=== PATIENT | male | born 1960 | race Caucasian/White ===

== ENCOUNTER → 2018-03-31 12:37 | Outpatient (REF) | payer MEDICARE, MEDICAID, SELFPAY ==
[2018-03-31 19:14] LABS: HCT 44.4 % (40.0-50.0); HGB 14.6 g/dL (13.5-17.5); Mean Corp. HGB Concentration 32.9 g/dL (32.0-36.0); Mean Corpuscular Hemoglobin 29.4 pg (27.0-33.0); Mean Corpuscular Volume 89.3 fL (80-95); Mean Platelet Volume 11.2 fL (8.0-11.0); Platelet Count 238 x1000/uL (130-400); RBC 4.97 m/cumm (4.50-6.00); RBC Distribution Width 13.5 % (11.8-14.1); White Blood Cell Count 7.92 k/cumm (4.4-10.8)
[2018-03-31 19:26] LABS: ALT 26 U/L (12-78); AST 21 U/L (15-37); Albumin 4.1 g/dL (3.4-5.0); Alkaline Phosphatase 73 U/L (46-116); Anion Gap 8.5 mmol/L (3-11); BUN 14 mg/dL (7-18); Bilirubin, Total 0.3 mg/dL (0.2-1.0); CO2 28.5 mmol/L (21.0-32.0); CREATININE 0.85 mg/dL (0.70-1.30); Calcium 8.8 mg/dL (8.5-10.1); Chloride 104 mmol/L (98-107); Cholesterol 165 mg/dL (50-200); Glucose 91 mg/dL (70-100); HDL Cholesterol 39 mg/dL (40-60); LDL CHOLESTEROL 111 mg/dL (<100); Potassium 4.6 mmol/L (3.5-5.1); Sodium 141 mmol/L (136-145); Total Protein 7.7 g/dL (6.4-8.2); Triglyceride 72 mg/dL (30-150)
[2018-03-31 19:33] LABS: Hemoglobin A1C 6.1 % (4.5-6.2)
[2018-04-03 10:09] LABS: PSA, Screening 0.4 ng/ml (0-3.5)
== END ==
LOC: NCHCN 12:37
PROVIDERS: PCP Nurse Practitioner Family; Visit Provider Family Medicine
DX: L40.9 Psoriasis, unspecified (principal); R73.01 Impaired fasting glucose; Z12.5 Encounter for screening for malignant neoplasm of prostate
CPT/HCPCS: 80053; 80061; 83721; 84153; 85027; 83036

== ENCOUNTER → 2018-04-20 01:42 | Outpatient (CLI) | payer MEDICARE, MEDICAID, SELFPAY ==
--- NOTE | 2018-04-20 14:13 | DI.REPORT_ITS ---
SYMPTOMS/DIAGNOSIS: RIGHT SCROTAL PAIN, N50.82 SCROTAL ULTRASOUND: The right testicle measures 2.4 x 2 x 1.2 cm and is heterogeneous, and irregular shaped and slightly atrophic. There is slightly diminished color flow and the testicle is slightly hypoechoic. The left epididymal head measures 9 x 8 mm. A 6 mm cyst is noted in the mid body of the right epididymis. Also, a 9 x 5 x 4 mm epididymal head cyst is identified. The left testicle measures 4.2 x 2.7 x 2.3 cm, is homogeneous and has normal color flow and is normal in appearance. The left epididymal head measures 6 x 7 x 9 mm and there is a 3 mm left epididymal head cyst. Prominent veins that enhance slightly with color flow on a Valsalva maneuver are noted in the right scrotum, the findings raising the possibility of a mild varicocele. SUMMARY: As noted above, there is an irregular heterogenous, hypoechoic right testis, which is mildly atrophic. Also, somewhat diminished color flow is seen compared with its left counterpart. There is no evidence of a right or left testicular mass or torsion.
== END ==
PROVIDERS: PCP Nurse Practitioner Family; Visit Provider Family Medicine
DX: N50.82 Scrotal pain (principal); N50.0 Atrophy of testis; N50.3 Cyst of epididymis
CPT/HCPCS: 76870

== ENCOUNTER 2018-05-11 06:39 | Emergency (ER) | payer MEDICARE, MEDICAID, SELFPAY ==
[2018-05-11] VITALS (38 sets, daily range): BP systolic 113–156; BP diastolic 60–96; PULSE 46–60; RESP 10–23; TEMP 36.7; O2SAT 91–99
--- NOTE | 2018-05-11 06:51 | W.ED.GENAD ---
Discharge Plan Disposition Patient Disposition: HOME Condition: Stable Discharge Details Chief Complaint: Chest Pain Clinical Impression: Chest pain Primary Care Provider: Kaylan Vo ED Provider: Andres Salguero Home Meds and New Rx's Prescriptions: Continue loratadine [Claritin RediTabs] 10 MG tablet,disintegrating 10 mg PO DAILY PRNRF: 0 ibuprofen 800 MG tablet 800 mg PO TID PRN RF: 0 blood sugar diagnostic [FreeStyle Lite Strips] 1 EACH strip 1 ea Miscellaneous QD AND PM RF: 0 lancets 1 EACH misc 1 ea Miscellaneous DAILY RF: 0 FLONASE 16 GM SPRAY.SUSP 50 mcg NS BID RF: 0 NIZORAL 30 GM CREAM..G. 30 gm Topical BID RF: 0 blood sugar diagnostic [FreeStyle Lite Strips] 1 EACH strip 1 ea Miscellaneous UD RF: 0 betamethasone, augmented 50 GM ointment 50 gm Topical BID RF: 0 lancets 1 EACH misc 1 ea Miscellaneous UD Qty: 400 RF: 0 methadone 10 MG tablet 170 mg PO DAILY RF: 0 adalimumab [Humira Pen] 40 mg/0.4 mL Pen Injector Kit 1 subcut DIRECTED RF: 0 duloxetine 30 mg Capsule,Delayed Release(Dr/Ec) 60 mg PO DAILY RF: 0 Discharge Instructions Instructions: Chest Pain (ED) Discharge Data Discharge Physician: Andres Salguero Medical Decision Making <Jadon Newsome MD - Last Filed: 05/11/18 07:54> [facility] Narrative Medical decision making narrative: Patient here with left sided chest pain that is pleuritic. Maybe a little worse with movement but mostly with breathing. He is not short of breath. He is bradycardic not tachycardic. Doubt this is pulmonary embolus but we will check a d-dimer given the pleuritic nature of the pain. Does not seem to be cardiac in nature but he does smoke and he is middle-aged. This EKG is sinus bradycardia with a right bundle branch block and is unchanged from previous. If his initial troponin is negative he will have a HEART score of 3. Will give aspirin. Will try a nitroglycerin. If this does not help we will give Toradol. Will sign the patient over to oncoming physician, Dr. Salguero to follow-up on x-ray and labs and disposition. Medical Records Medical records reviewed: Yes I reviewed the patient's medical records. ECG Data Attestation: I personally reviewed and interpreted this ECG (s) as follows: Prior ECG tracings: available for review Interpretation: Sinus bradycardia at a rate of 51. Normal axis. Right bundle branch block present and old. No ST changes. HPI - General Adult <Jadon Newsome MD - Last Filed: 05/11/18 07:54> General Mode of arrival: ambulatory. Date/Time Provider Initiated Documentation: 05/11/18 06:51. Limitations to Documentation: no limitations. Information obtained by: patient. HPI Narrative: Patient presents to the ED with left sided chest pain that started around 4 am. Pain is decribed as tightness but it is pleuritic as well. No associated symptoms. No leg pain or leg swelling. He is a smoker. Smoked marijuana and cigarettes prior to coming in this morning. He also took his morning medications which include methadone. He reports starting the new medication a couple of weeks ago but cannot remember the name of it. He mentions this because a few years ago he was put on a new medication that interacted with his methadone and caused him to have chest pain then. He also reports removing a planter full of dirt from his roof the other day using his left arm to carry the plant down from the roof. Related Data Home Medications Medication Instructions Recorded Confirmed Flonase 50 mcg NS BID spray 01/31/13 05/11/18 Nizoral 30 gm TOPICAL BID script 01/31/13 05/11/18 blood sugar diagnostic [FreeStyle strip 01/31/13 05/11/18 Lite Strips] ibuprofen 800 mg PO TID PRN tab-cap 01/31/13 05/11/18 lancets ea 01/31/13 05/11/18 loratadine [Claritin RediTabs] 10 mg PO DAILY PRN tab-cap 01/31/13 05/11/18 betamethasone, augmented 50 gm TOPICAL BID script 11/12/14 05/11/18 blood sugar diagnostic [FreeStyle strip 11/12/14 05/11/18 Lite Strips] lancets #400 ea 11/12/14 05/11/18 methadone 170 mg PO DAILY 12/23/14 05/11/18 adalimumab [Humira Pen] 1 SUBCUT DIRECTED 05/11/18 duloxetine 60 mg PO DAILY 05/11/18 05/11/18 Allergies Allergy/AdvReac Type Severity Reaction Status Date / Time No Known Allergies Allergy Unverified 05/11/18 06:49 General Stated Complaint: Chest Pain AJAY: 2 Review of Systems <Jadon Newsome MD - Last Filed: 05/11/18 07:54> Constitutional Denies chills, Denies fever(s), Denies headache(s), Denies malaise and Denies weakness Eyes Patient denies and Denies eye pain ENT Denies otalgia, Denies headache(s), Denies nasal congestion and Denies sore throat Cardiovascular Reports chest pain, Denies diaphoresis, Denies syncope, Denies edema, Denies leg edema, Denies palpitations, Denies dyspnea and Denies dyspnea on exertion Respiratory Denies cough, Denies dyspnea and Denies dyspnea on exertion Gastrointestinal Denies abdominal pain, Denies diarrhea, Denies nausea and Denies vomiting Musculoskeletal Reports back pain (chronic and unchanged), Denies myalgias, Denies arthralgias, Denies numbness and Denies tingling Integumentary/Breasts Denies erythema and Reports rash (chronic psoriasis) Neurologic Denies syncope, Denies headache(s), Denies focal weakness, Denies numbness, Denies tingling and Denies weakness Endocrine Denies palpitations Exam <Jadon Newsome MD - Last Filed: 05/11/18 07:54> Const General: cooperative, comfortable and no acute distress Orientation: alert and oriented x3 [facility] Head: normocephalic and atraumatic Chest Chest: normal palpation of entire chest wall and no tenderness Resp Effort & Inspection: normal respiratory effort Auscultation: clear to auscultation bilaterally Cardio Rate: regular rate Rhythm: regular rhythm Heart Sounds: S1 normal and S2 normal Pulses: normal peripheral pulses GI Inspection: non-distended Palpation: soft, not firm and nontender Skin Rashes: rashes noted (Psoriatic rash) Neuro General: alert, oriented x3, no focal motor deficits and CN's II-XI intact bilaterally Extrem General: full ROM, no pedal edema and no calf tenderness Course <Jadon Newsome MD - Last Filed: 05/11/18 07:54> Vital Signs Temperature 98.1 F 05/11/18 06:41 Pulse 53 L 05/11/18 06:41 Respiratory Rate 16 05/11/18 06:41 Blood Pressure 156/79 H 05/11/18 06:41 Pulse Oximetry 97 05/11/18 06:41 Temperature 98.1 F 05/11/18 06:41 Pulse 53 L 05/11/18 06:41 Respiratory Rate 16 05/11/18 06:41 Blood Pressure 156/79 H 05/11/18 06:41 Pulse Oximetry 97 05/11/18 06:41 Sign Out <Jadon Newsome MD - Last Filed: 05/11/18 07:54> Sign Out Data: Sign Out Comment: Patient did not respond to nitroglycerin. Labs and chest x-ray pending. Toradol given for pain. Sign out to Dr. Salguero to follow up on labs and imaging and disposition patient. Last updated by Jadon Newsome MD at 05/11/18 07:48 Post-Handoff Eval: patient's pain resolved with toradol and denies pain now. Awaiting second troponin pt still denies pain, second troponin negative. Given heart score of 3 feel he can be managed as outpt, he is going to f/u wi
--- NOTE | 2018-05-11 06:56 | ED.GENADUL_ITS ---
Discharge Plan Disposition Patient Disposition: HOME Condition: Stable Discharge Details Chief Complaint: Chest Pain Clinical Impression: Chest pain Primary Care Provider: Kaylan Vo ED Provider: Andres Salguero Home Meds and New Rx's Prescriptions: Continue loratadine [Claritin RediTabs] 10 MG tablet,disintegrating 10 mg PO DAILY PRNRF: 0 ibuprofen 800 MG tablet 800 mg PO TID PRN RF: 0 blood sugar diagnostic [FreeStyle Lite Strips] 1 EACH strip 1 ea Miscellaneous QD AND PM RF: 0 lancets 1 EACH misc 1 ea Miscellaneous DAILY RF: 0 FLONASE 16 GM SPRAY.SUSP 50 mcg NS BID RF: 0 NIZORAL 30 GM CREAM..G. 30 gm Topical BID RF: 0 blood sugar diagnostic [FreeStyle Lite Strips] 1 EACH strip 1 ea Miscellaneous UD RF: 0 betamethasone, augmented 50 GM ointment 50 gm Topical BID RF: 0 lancets 1 EACH misc 1 ea Miscellaneous UD Qty: 400 RF: 0 methadone 10 MG tablet 170 mg PO DAILY RF: 0 adalimumab [Humira Pen] 40 mg/0.4 mL Pen Injector Kit 1 subcut DIRECTED RF: 0 duloxetine 30 mg Capsule,Delayed Release(Dr/Ec) 60 mg PO DAILY RF: 0 Discharge Instructions Instructions: Chest Pain (ED) Discharge Data Discharge Physician: Andres Salguero Medical Decision Making <Jadon Newsome MD - Last Filed: 05/11/18 07:54> [facility] Narrative Medical decision making narrative: Patient here with left sided chest pain that is pleuritic. Maybe a little worse with movement but mostly with breathing. He is not short of breath. He is bradycardic not tachycardic. Doubt this is pulmonary embolus but we will check a d-dimer given the pleuritic nature of the pain. Does not seem to be cardiac in nature but he does smoke and he is middle- aged. This EKG is sinus bradycardia with a right bundle branch block and is unchanged from previous. If his initial troponin is negative he will have a HEART score of 3. Will give aspirin. Will try a nitroglycerin. If this does not help we will give Toradol. Will sign the patient over to oncoming physician , Dr. Salguero to follow-up on x-ray and labs and disposition. Medical Records Medical records reviewed: Yes I reviewed the patient's medical records. ECG Data Attestation: I personally reviewed and interpreted this ECG (s) as follows: Prior ECG tracings: available for review Interpretation: Sinus bradycardia at a rate of 51. Normal axis. Right bundle branch block present and old. No ST changes. HPI - General Adult <Jadon Newsmoe MD - Last Filed: 05/11/18 07:54> General Mode of arrival: ambulatory . Date/Time Provider Initiated Documentation: 05/11/18 06:51 . Limitations to Documentation: no limitations . Information obtained by: patient . HPI Narrative: Patient presents to the ED with left sided chest pain that started around 4 am. Pain is decribed as tightness but it is pleuritic as well. No associated symptoms. No leg pain or leg swelling. He is a smoker. Smoked marijuana and cigarettes prior to coming in this morning. He also took his morning medications which include methadone. He reports starting the new medication a couple of weeks ago but cannot remember the name of it. He mentions this because a few years ago he was put on a new medication that interacted with his methadone and caused him to have chest pain then. He also reports removing a planter full of dirt from his roof the other day using his left arm to carry the plant down from the roof. Related Data Home Medications Medication Instructions Recorded Confirmed Flonase 50 mcg NS BID spray 01/31/13 05/11/18 Nizoral 30 gm TOPICAL BID script 01/31/13 05/11/18 blood sugar diagnostic [FreeStyle strip 01/31/13 05/11/18 Lite Strips] ibuprofen 800 mg PO TID PRN tab-cap 01/31/13 05/11/18 lancets ea 01/31/13 05/11/18 loratadine [Claritin RediTabs] 10 mg PO DAILY PRN tab-cap 01/31/13 05/11/18 betamethasone, augmented 50 gm TOPICAL BID script 11/12/14 05/11/18 blood sugar diagnostic [FreeStyle strip 11/12/14 05/11/18 Lite Strips] lancets #400 ea 11/12/14 05/11/18 methadone 170 mg PO DAILY 12/23/14 05/11/18 adalimumab [Humira Pen] 1 SUBCUT DIRECTED 05/11/18 duloxetine 60 mg PO DAILY 05/11/18 05/11/18 Allergies Allergy/AdvReac Type Severity Reaction Status Date / Time No Known Allergies Allergy Unverified 05/11/18 06:49 General Stated Complaint: Chest Pain AJAY: 2 Review of Systems <Jadon Newsome MD - Last Filed: 05/11/18 07:54> Constitutional Denies chills, Denies fever(s), Denies headache(s), Denies malaise and Denies weakness Eyes Patient denies and Denies eye pain ENT Denies otalgia, Denies headache(s), Denies nasal congestion and Denies sore throat Cardiovascular Reports chest pain, Denies diaphoresis, Denies syncope, Denies edema, Denies leg edema, Denies palpitations, Denies dyspnea and Denies dyspnea on exertion Respiratory Denies cough, Denies dyspnea and Denies dyspnea on exertion Gastrointestinal Denies abdominal pain, Denies diarrhea, Denies nausea and Denies vomiting Musculoskeletal Reports back pain (chronic and unchanged), Denies myalgias, Denies arthralgias, Denies numbness and Denies tingling Integumentary/Breasts Denies erythema and Reports rash (chronic psoriasis) Neurologic Denies syncope, Denies headache(s), Denies focal weakness, Denies numbness, Denies tingling and Denies weakness Endocrine Denies palpitations Exam <Jadon Newsome MD - Last Filed: 05/11/18 07:54> Const General: cooperative, comfortable and no acute distress Orientation: alert and oriented x3 [facility] Head: normocephalic and atraumatic Chest Chest: normal palpation of entire chest wall and no tenderness Resp Effort & Inspection: normal respiratory effort Auscultation: clear to auscultation bilaterally Cardio Rate: regular rate Rhythm: regular rhythm Heart Sounds: S1 normal and S2 normal Pulses: normal peripheral pulses GI Inspection: non-distended Palpation: soft, not firm and nontender Skin Rashes: rashes noted (Psoriatic rash) Neuro General: alert, oriented x3, no focal motor deficits and CN's II-XI intact bilaterally Extrem General: full ROM, no pedal edema and no calf tenderness Course <Jadon Newsome MD - Last Filed: 05/11/18 07:54> Vital Signs Temperature 98.1 F 05/11/18 06:41 Pulse 53 L 05/11/18 06:41 Respiratory Rate 16 05/11/18 06:41 Blood Pressure 156/79 H 05/11/18 06:41 Pulse Oximetry 97 05/11/18 06:41 Temperature 98.1 F 05/11/18 06:41 Pulse 53 L 05/11/18 06:41 Respiratory Rate 16 05/11/18 06:41 Blood Pressure 156/79 H 05/11/18 06:41 Pulse Oximetry 97 05/11/18 06:41 Sign Out <Jadon Newsome MD - Last Filed: 05/11/18 07:54> Sign Out Data: Sign Out Comment: Patient did not respond to nitroglycerin. Labs and chest x- ray pending. Toradol given for pain. Sign out to Dr. Salguero to follow up on labs and imaging and disposition patient. Last updated by Jadon Newsome MD at 05/11/18 07:48 Post-Handoff Eval: patient's pain resolved with toradol and denies pain now. Awaiting second troponin pt still denies pain, second troponin negative. Given heart score of 3 feel he can be managed as outpt, he is going to f/u wi
--- NOTE | 2018-05-11 07:05 | DI.RAD_ITS ---
SYMPTOM/DIAGNOSIS: CHEST PAIN PORTABLE AP CHEST: The lungs are free of infiltrate. The cardiovascular structures are intact. SUMMARY: No evidence of acute cardiopulmonary disease.
[2018-05-11] MEDS: Aspirin 81 MG CHEW 324 MG CH (07:14)
[2018-05-11 07:19] LABS: Abs Immature Grans 0.01 k/cumm (0.0-0.09); Absolute Basophil Count 0.04 k/cumm (0.0-0.2); Absolute Eosinophil Count 0.25 k/cumm (0.0-0.7); Absolute Lymphocyte Count 1.73 k/cumm (1.2-3.4); Absolute Monocyte Count 0.82 k/cumm (0.11-0.7); Absolute Neutrophil Count 5.35 k/cumm (1.2-6.7); Basophils % 0.5; HCT 45.8 % (40.0-50.0); Immature Grans % 0.1; Lymphocytes % 21.1; Mean Corp. HGB Concentration 32.8 g/dL (32.0-36.0); Mean Corpuscular Hemoglobin 29.6 pg (27.0-33.0); Mean Corpuscular Volume 90.3 fL (80-95); Mean Platelet Volume 10.5 fL (8.0-11.0); Neutrophils % 65.3; Platelet Count 223 x1000/uL (130-400); RBC 5.07 m/cumm (4.50-6.00); RBC Distribution Width 13.5 % (11.8-14.1)
[2018-05-11 07:40] LABS: ALT 24 U/L (12-78); AST 25 U/L (15-37); Albumin 3.7 g/dL (3.4-5.0); Alkaline Phosphatase 67 U/L (46-116); BUN 13 mg/dL (7-18); Bilirubin, Total 0.2 mg/dL (0.2-1.0); CREATININE 0.71 mg/dL (0.70-1.30); Chloride 106 mmol/L (98-107); Glucose 124 mg/dL (70-100); Magnesium 2.2 mg/dL (1.8-2.4); Potassium 4.3 mmol/L (3.5-5.1); Sodium 143 mmol/L (136-145); Total Protein 7.5 g/dL (6.4-8.2); Troponin I 0.02 ng/mL (0.00-0.06)
[2018-05-11] MEDS: Ketorolac 15 MG/ML VIAL IVP (07:41)
[2018-05-11 07:51] LABS: Calcium 8.6 mg/dL (8.5-10.1)
[2018-05-11 08:21] LABS: D-Dimer 356 ng/mlFEU (<500)
[2018-05-11 10:11] LABS: Troponin I < 0.02 ng/mL (0.00-0.06)
== END 2018-05-11 10:40 | disposition home or self-care (01) ==
PROVIDERS: Emergency Medicine; Emergency Provider Emergency Medicine; PCP Nurse Practitioner Family
DX: R07.9 Chest pain, unspecified (principal); R00.1 Bradycardia, unspecified
CPT/HCPCS: 36415; 80053; 93005; 96374; 99284; 71045; 83735; 84484; 85025; 85379; 93010; J1885

== ENCOUNTER 2020-11-28 04:06 | Outpatient (CLI) | payer MEDICARE, MEDICAID, SELFPAY ==
--- NOTE | 2020-11-28 09:17 | DI.RAD_ITS ---
EXAM: XR HIP RT COMPLETE AP PELVIS CLINICAL HISTORY: RT HIP PAIN,M25.551. TECHNIQUE: 2D digital imaging was performed. COMPARISON: No exams were available for comparison FINDINGS: BONES: No acute fracture is present. No bony destructive lesion is seen. JOINTS: No dislocation present. There is mild narrowing of the right hip joint space. SOFT TISSUE: Normal. IMPRESSION: Mild narrowing of the right hip joint. Otherwise unremarkable examination. DATA REPOSITORY: RADIATION DOSE DELIVERED:
== END 2020-11-28 04:26 ==
PROVIDERS: PCP Family Medicine; Visit Provider Family Medicine
DX: M25.551 Pain in right hip (principal)
CPT/HCPCS: 73502

== ENCOUNTER 2021-04-01 16:19 | Outpatient (REF) | payer MEDICARE, MEDICAID, SELFPAY ==
[2021-04-01 20:28] LABS: HGB 14.6 g/dL (13.5-17.5); MCH 29.1 pg (27.0-33.0); MCV 89.6 fL (80-95); RBC 5.02 10^6/uL (4.36-5.78); WBC 6.38 10^3/uL (4.4-10.8)
[2021-04-01 20:29] LABS: MCHC 32.4 % (32.0-36.0); MPV 10.9 fL (8.0-11.0); Platelet Count 235 10^3/uL (130-400); RDW 12.6 % (11.8-14.1); RDW-SD 41.1 fL
[2021-04-01 20:57] LABS: ALT 19 U/L (16-63); AST 21 U/L (15-37); Albumin 4.1 g/dL (3.4-5.0); Alkaline Phosphatase 59 U/L (46-116); Anion Gap 9.3 mmol/L (3-11); BUN 15 mg/dL (7-18); Bilirubin, Total 0.3 mg/dL (0.2-1.0); CO2 25.7 mmol/L (21.0-32.0); CREATININE 0.8 mg/dL (0.70-1.30); Calculated LDL 101 mg/dL (<100); Chloride 107 mmol/L (98-107); Cholesterol 152 mg/dL (<200); Glucose 93 mg/dL (74-106); HDL Cholesterol 42 mg/dL (40-60); Potassium 4.6 mmol/L (3.5-5.1); Sodium 142 mmol/L (136-145); TSH (W/Ref FT4) 2.12 uIU/mL (0.36-3.74); Total Protein 7.8 g/dL (6.4-8.2); Triglyceride 49 mg/dL (<150)
[2021-04-02 17:34] LABS: PSA, Screening 0.4 ng/mL (0.0-3.5)
== END 2021-04-01 16:20 | disposition home or self-care (01) ==
LOC: NCHCN 16:19
PROVIDERS: PCP Family Medicine; Visit Provider Family Medicine
DX: R53.83 Other fatigue (principal); Z12.5 Encounter for screening for malignant neoplasm of prostate; L40.50 Arthropathic psoriasis, unspecified
CPT/HCPCS: 80053; 80061; 84153; 85027; 84443

== ENCOUNTER 2021-06-25 21:33 | Outpatient (REF) | payer MEDICARE, MEDICAID, SELFPAY ==
[2021-07-01 11:28] LABS: Testosterone, Free 5.95 ng/dL (3.87-14.7); Testosterone, Total 313 ng/dL (240-950)
== END 2021-06-25 21:34 | disposition home or self-care (01) ==
LOC: NCHCN 21:33
PROVIDERS: PCP Family Medicine; Visit Provider Family Medicine
DX: G89.29 Other chronic pain (principal); Z79.899 Other long term (current) drug therapy
CPT/HCPCS: 84402; 84403; 83036

== ENCOUNTER 2021-12-29 00:38 | Outpatient (CLI) | payer MEDICARE, MEDICAID, SELFPAY ==
--- NOTE | 2021-12-29 08:18 | DI.CTLCSR_ITS ---
Exam(s) CT CHEST LUNG CANCER SCREEN EXAM: CT CHEST LUNG CANCER SCREEN CLINICAL HISTORY: CIGARETTE SMOKER, F17.210, screening for lung ca. TECHNIQUE: Imaging Protocol: Low Dose Technique CONTRAST MATERIAL: None COMPARISON: CR XR PORTABLE CHEST AP from 05/11/2018 FINDINGS: CHEST: LUNGS: There are no confluent infiltrates nor pleural effusions.. In the right lung there is a 1 mil limeter tiny noncalcified nodule in the right upper lobe. There is also a fissure based 4 millimeter nodule in the mid right lung field. In the left lung there is a 5 millimeter noncalcified nodule in the lateral basal segment of the left lower lobe. No other focal left lung findings. There are no significant focal findings in the trachea and mainstem bronchi. There is no bronchiecta sis. MEDIASTINUM: There is no obvious hilar nor mediastinal adenopathy. CARDIAC: Heart size is normal. There is no pericardial effusion.No coronary artery calcification harley dent. Caliber of the thoracic aorta is upper normal. OTHER: No significant adrenal masses seen. OSSEOUS: No significant osseous lesions.. IMPRESSION: 1. Two small nodules in the right lung and one small nodule in the left lung, as described above. 2. No pleural effusions nor obvious intrathoracic adenopathy. Repeat CT scan in 6 months recommended. 3. Lung RADS Cat 3 - Probably Benign: Probably benign finding(s) - short term follow-up suggested; in clude nodules with a low likelihood of becoming a clinically active cancer. Lung-RADS 1.0 CATEGORIES: Category 0 - Prior chest CT exam(s) being located for comparison. Category 1 - Annual screening in 12 months. No nodules or definitely benign nodules. Category 2 - Annual screening in 12 months. Benign appearance. Nodules with low likelihood of becomin g active cancer. Category 3 - 6-month follow-up. Probably benign. Short-term follow-up suggested. Nodules with low lik elihood of becoming active cancer. Category 4A - 3-month follow-up and CT/PET if >8 mm in size. Suspicious finding. Findings which requi re additional testing. Category 4B - Findings which require additional testing and tissue sampling. Category 4X - Category 3 or 4 nodules with additional features or imaging findings that increases the suspicion of malignancy. Modifier S- Potentially clinically significant findings (non lung cancer) RADIATION DOSE DELIVERED: 91.73mGy.cm Total DLP 2.21mGyCTDIvol DATA REPOSITORY: All CT scans at this facility are submitted to the National Radiology Data Registry (NRDR) Dose Index Registry (DIR) with the [employer] ([employer]). RADIATION OPTIMIZATION: All CT scans at this facility use at least one of these dose optimization te chniques: automated exposure control; mA and/or kV adjustment per patient size (includes targeted exa ms where dose is matched to clinical indication); or iterative reconstruction.
== END 2021-12-29 00:58 ==
PROVIDERS: PCP Family Medicine; Visit Provider Family Medicine
DX: F17.210 Nicotine dependence, cigarettes, uncomplicated (principal); Z12.2 Encounter for screening for malignant neoplasm of respiratory organs; R91.8 Other nonspecific abnormal finding of lung field
CPT/HCPCS: 71271

== ENCOUNTER 2022-09-20 02:14 | Outpatient (CLI) | payer MEDICARE, MEDICAID, SELFPAY ==
--- NOTE | 2022-09-20 10:26 | DI.CT_ITS ---
Exam(s) CT CHEST WO EXAM: CT CHEST WO CLINICAL HISTORY: LUNG NODULE, R91.8. TECHNIQUE: Imaging protocol: Axial computed tomography images were obtained and coronal and sagittal reformatted images were created and reviewed. COMPARISON: CT CT CHEST LUNG CANCER SCREEN from 12/29/2021 FINDINGS: Tracheobronchial tree: Patent where visualized. Pulmonary parenchyma: The nodule associated with the right major fissure is unchanged. The tiny righ t upper lobe pulmonary nodule is unchanged. The nodule in the lateral aspect of the left lower lobe is unchanged. There are no new pulmonary nodules. No focal consolidating infiltrates are seen. No architectural distortion. Mediastinum and Margaret: No dominant adenopathy or fluid collection. The esophagus is unremarkable. Thyroid gland: Unremarkable. Pleura: No effusion or pneumothorax. Heart: The heart is not dilated. No coronary artery calcifications are seen. No pericardial effusion. Aorta: Thoracic aorta non-dilated. Mild atherosclerosis. Upper abdomen: Unremarkable. Lymph nodes: Within normal limits. Soft tissues: Mild gynecomastia. Bones:Within normal limits for the patient's age. IMPRESSION: Stable pulmonary nodules. No new pulmonary nodules are present. Repeat CT scan in 1 year is recomme nded. RADIATION DOSE DELIVERED: 718.33mGy.cm Total DLP 718.33mGy.cm Total DLP DATA REPOSITORY: All CT scans at this facility are submitted to the National Radiology Data Registry (NRDR) Dose Index Registry (DIR) with the [employer] ([employer]). RADIATION OPTIMIZATION: All CT scans at this facility use at least one of these dose optimization te chniques: automated exposure control; mA and/or kV adjustment per patient size (includes targeted exa ms where dose is matched to clinical indication); or iterative reconstruction.
== END 2022-09-20 02:34 ==
LOC: DI 02:15
PROVIDERS: PCP Family Medicine; Visit Provider Family Medicine
DX: R91.8 Other nonspecific abnormal finding of lung field (principal)
CPT/HCPCS: 71250

== ENCOUNTER 2022-11-30 13:40 | Outpatient (REF) | payer MEDICARE, MEDICAID, SELFPAY ==
[2022-11-30 15:31] LABS: HCT 39.8 % (40.0-50.0); HGB 12.9 g/dL (13.5-17.5); MCH 28.5 pg (27.0-33.0); MCHC 32.4 % (32.0-36.0); MCV 88 fL (80-95); MPV 10.6 fL (8.0-11.0); Platelet Count 218 10^3/uL (130-400); RBC 4.53 10^6/uL (4.36-5.78); RDW 13.1 % (11.8-14.1); RDW-SD 42.2 fL; WBC 6.97 10^3/uL (4.4-10.8)
[2022-11-30 15:54] LABS: ALT 48 U/L (16-63); AST 40 U/L (15-37); Albumin 3.8 g/dL (3.4-5.0); Alkaline Phosphatase 59 U/L (46-116); Anion Gap 3.5 mmol/L (3-11); BUN 18 mg/dL (7-18); Bilirubin, Total 0.5 mg/dL (0.2-1.0); CO2 26.5 mmol/L (21.0-32.0); CREATININE 0.9 mg/dL (0.70-1.30); Calcium 8.8 mg/dL (8.5-10.1); Chloride 107 mmol/L (98-107); Estimated GFR 97.78 (mL/min/1.73m2); Glucose 103 mg/dL (74-106); Potassium 4.4 mmol/L (3.5-5.1); Sodium 137 mmol/L (136-145); Total Protein 7.4 g/dL (6.4-8.2)
[2022-11-30 16:41] LABS: Hemoglobin A1C 6.4 % (<5.7)
== END 2022-11-30 13:41 | disposition home or self-care (01) ==
LOC: NCHCN 13:40
PROVIDERS: PCP Family Medicine; Visit Provider Family Medicine
DX: L40.50 Arthropathic psoriasis, unspecified (principal); R73.09 Other abnormal glucose
CPT/HCPCS: 80053; 85027; 83036

== ENCOUNTER 2022-12-27 01:31 | Outpatient (CLI) | payer MEDICARE, MEDICAID, SELFPAY ==
--- NOTE | 2022-12-27 | DI.US_ITS ---
Exam(s) US ABDOMEN EXAM: US ABDOMEN CLINICAL HISTORY: ABD BLOATING, R14.0,ELEVATED LFT'S,R79.89 TECHNIQUE: Ultrasound abdomen performed using standard protocol. COMPARISON: CT CT CHEST WO from 09/20/2022 FINDINGS: LIVER: Elongated right lobe. Normal echogenicity.. No focal liver lesions are seen.. GALLBLADDER: No evidence of cholelithiasis. No evidence of wall thickening. No pericholecystic fluid identified. BERRY'S SIGN: Negative. BILIARY SYSTEM: Stable mild dilatation of the common bile duct to 8 millimeters. No intrahepatic bi liary ductal dilation. KIDNEYS: Kidneys are symmetric in size. No evidence of renal calculi. No evidence of hydronephrosis. No renal mass or cyst identified. PANCREAS: Mostly obscured by bowel gas. SPLEEN: Not enlarged. ABDOMINAL AORTA AND IVC: Visualized portions normal caliber. ASCITES: None seen. IMPRESSION: No acute abnormality. DATA REPOSITORY:
== END 2022-12-27 01:51 ==
LOC: DI 01:35
PROVIDERS: PCP Family Medicine; Visit Provider Family Medicine
DX: R14.0 Abdominal distension (gaseous) (principal); R79.89 Other specified abnormal findings of blood chemistry
CPT/HCPCS: 76700

== ENCOUNTER 2022-12-31 16:56 | Outpatient (REF) | payer MEDICARE, MEDICAID, SELFPAY ==
[2022-12-31 14:58] LABS: HGB 14.3 g/dL (13.5-17.5)
[2022-12-31 15:31] LABS: Iron 80 ug/dL (65-175)
[2022-12-31 16:13] LABS: ALT 34 U/L (16-63); AST 29 U/L (15-37); Albumin 3.7 g/dL (3.4-5.0); Alkaline Phosphatase 64 U/L (46-116); Bilirubin, Total 0.3 mg/dL (0.2-1.0); Ferritin 110 ng/mL (26-388); Total Protein 8.2 g/dL (6.4-8.2); Vitamin B12 705 pg/mL (193-986)
[2022-12-31 16:22] LABS: Folate > 20.0 ng/mL (8.6-20.0)
[2022-12-31 16:35] LABS: Bilirubin, Direct 0.1 mg/dL (0.0-0.2)
[2023-01-03 11:18] LABS: Hepatitis A Antibody IgM Negative (Negative); Hepatitis B Core Antibody Positive (Negative); Hepatitis B surface Ag Negative (Negative); Hepatitis C Ab w Rflx HCV PCR Reactive (Negative)
[2023-01-04 22:06] LABS: HBc IgM Ab, S Negative (Negative)
[2023-01-05 12:53] LABS: HCV RNA Qualitative Undetected (Undetected)
== END 2022-12-31 16:57 | disposition home or self-care (01) ==
LOC: NCHCN 16:56
PROVIDERS: PCP Family Medicine; Visit Provider Family Medicine
DX: R79.89 Other specified abnormal findings of blood chemistry (principal); Z79.899 Other long term (current) drug therapy; R76.0 Raised antibody titer
CPT/HCPCS: 80076; 86704; 86709; 86803; 87340; 87522; 82607; 82728; 82746; 83540; 85014; 85018; 86705

== ENCOUNTER → 2023-09-26 04:11 | Outpatient (CLI) | payer MEDICARE, MEDICAID, SELFPAY ==
--- NOTE | 2023-09-26 | DI.CTLCSR_ITS ---
Exam(s) CT CHEST LUNG CANCER SCREEN EXAM: CT CHEST LUNG CANCER SCREEN CLINICAL HISTORY: SCREENING FOR LUNG CA,FORMER SMOKER, Z87.891. TECHNIQUE: Imaging Protocol: Low Dose Technique CONTRAST MATERIAL: None COMPARISON: CT CT CHEST WO from 09/20/2022 FINDINGS: CHEST: LUNGS: The previously described small bilateral pulmonary nodules are unchanged in size and number. The largest is in the lateral basal segment of the left lower lobe and measures 5 mm, unchanged.. No new nodules nor confluent infiltrates. No pleural effusions. MEDIASTINUM: There is no obvious hilar nor mediastinal adenopathy. CARDIAC: Heart size is normal. There is no pericardial effusion.Caliber of the thoracic aorta is wit hin normal limits. OTHER: OSSEOUS: No significant osseous lesions.. IMPRESSION: 1. Stable unchanged appearance of the previously described small bilateral pulmonary nodules ranging up to 5 mm size. No new nodules evident 2. No pleural effusions nor intrathoracic adenopathy. 3. Lung RADS Cat 2 - Benign Appearance / Behavior: Nodules with a very low likelihood of becoming a c linically active cancer due to size or lack of growth Lung-RADS 1.0 CATEGORIES: Category 0 - Prior chest CT exam(s) being located for comparison. Category 1 - Annual screening in 12 months. No nodules or definitely benign nodules. Category 2 - Annual screening in 12 months. Benign appearance. Nodules with low likelihood of becomin g active cancer. Category 3 - 6-month follow-up. Probably benign. Short-term follow-up suggested. Nodules with low lik elihood of becoming active cancer. Category 4A - 3-month follow-up and CT/PET if >8 mm in size. Suspicious finding. Findings which requi re additional testing. Category 4B - Findings which require additional testing and tissue sampling. Category 4X - Category 3 or 4 nodules with additional features or imaging findings that increases the suspicion of malignancy. Modifier S- Potentially clinically significant findings (non lung cancer) RADIATION DOSE DELIVERED: 77.27mGy.cm Total DLP DATA REPOSITORY: All CT scans at this facility are submitted to the National Radiology Data Registry (NRDR) Dose Index Registry (DIR) with the [employer] (ACR). RADIATION OPTIMIZATION: All CT scans at this facility use at least one of these dose optimization te chniques: automated exposure control; mA and/or kV adjustment per patient size (includes targeted exa ms where dose is matched to clinical indication); or iterative reconstruction.
== END ==
PROVIDERS: PCP Family Medicine; Visit Provider Family Medicine
DX: Z87.891 Personal history of nicotine dependence (principal); Z12.2 Encounter for screening for malignant neoplasm of respiratory organs; R91.1 Solitary pulmonary nodule
CPT/HCPCS: 71271

== ENCOUNTER 2024-05-08 01:10 | Outpatient (CLI) | payer MEDICARE, MEDICAID, SELFPAY ==
--- NOTE | 2024-05-08 | DI.US_ITS ---
APPROVED REPORT EXAM: Comprehensive 2D, Doppler, and color-flow Echocardiogram Patient Location: Out-Patient Experience Designer: Teresa Joyner RDCS (AE) Indications: keno terminal operator drug therapy Other Information Study Quality: Adequate Conclusion Normal left ventricular wall thickness and chamber size. Ejection fraction is 55 to 60%. Wall motio n is normal. Normal right ventricular size and function Both atria are normal in size There is no structural or hemodynamically significant valvular disease Estimated right ventricular systolic pressure is 24 mmHg Ascending aorta measures 3.73 cm Wall motion Left Ventricle The left ventricle is normal size. The left ventricular systolic function is normal. The left ventric ular ejection fraction is within the normal range. There is normal left ventricular wall thickness. T here is normal LV segmental wall motion. There is no ventricular septal defect visualized. LVEF is 55 %. Right Ventricle The right ventricle is normal size. The right ventricular systolic function is normal. Atria The left atrium size is normal. The right atrium size is normal. The interatrial septum is intact wit h no evidence for an atrial septal defect. Aortic Valve The aortic valve is normal in structure. Aortic valve is trileaflet. There is no aortic valvular sten osis. No aortic regurgitation is present. Mitral Valve The mitral valve is normal in structure. No evidence of mitral valve stenosis. Trace mitral regurgita tion. Tricuspid Valve The tricuspid valve is normal in structure. There is no tricuspid valve stenosis. Trace tricuspid reg urgitation. The RVSP is 23.8mmHg. Pulmonic Valve The pulmonary valve is normal in structure. There is no pulmonic valvular stenosis. Trace pulmonic re gurgitation. Great Vessels The aortic root is normal in size. The ascending aorta is mildly dilated. IVC is normal in size and c ollapses >50% with inspiration. Pericardium There is no pericardial effusion. 2D Dimensions IVSD d PLAX 0.92 cm M: 0.6-1.2 Ao Root d 3.38 cm M: 3.1 - 3.7 LVPW d PLAX 0.91 cm M: 0.6 - 1.2 Ao Asc Diam d 3.73 cm M: 2.6 - 3.4 LVID d PLAX 5.11 cm M: 4.2 - 5.8 LVDs 3.69 cm M: 2.5 - 4.0 LV EF Teichholz 53.6 % FS 27.84 % LV EDV (Teich) 124.3 mL LV ESV (Teich) 57.6 mL M-Mode TAPSE 3.01 cm (M/F) >1.7 Auto EF LV EDV A4C 187.8 mL LV EDV A2C 153.6 mL LV EDV BP 170.3 mL LV ESV A4C 86.5 mL LV ESV A2C 62.8 mL LV ESV BP 75.0 mL LVEF(%) A4C 54.0 % LVEF(%) A2C 59.1 % LVEF(%) BP 56.0 % LV SV A4C 101.3 ml LV SV A2C 90.8 ml LV SV BP 95.3 ml LV CO A4C 8.1 L/min LV CO A2C 8.3 L/min LV CO BP 8.2 L/min HR A4C 79.79 BPM HR A2C 91.84 BPM LV EDV Index (BP) LA Volume LA Length A4C 5.7 cm LA Length A2C 5.2 cm LA Area A4C s 20.49 cm2 LA Area A2C s 18.40 cm2 LA Vol A4C A-L 62.88 mL LA Vol A2C A-L 55.07 mL LA Vol Biplane A-L 61.3 mL LA Vol/BSA A4C A-L LA Vol/BSA A2C A-L LA Vol/BSA BP A-L 30.1 mL/m2 LA Vol A4C MOD 57.7 mL LA Vol A2C MOD 52.3 mL LA Vol BP MOD 57.2 mL RA Volume RA Area A4C 16.0 cm2 RA ESV A4C (A-L) 41.3mL RA Vol/BSA A4C A-L RA Length A4C 5.3 cm RA ESV A4C (MOD) 39.6mL LV Diastology MV E' medial 0.102 (>0.07 m/s) MV E Vmax 0.69 (0.4-1.3 m/s) MV E/E' MED 6.78 (<14) MV A Vmax 0.85 (0.4-1.3 m/s) MV E' lateral 0.152 (>0.1 m/s) E/A Ratio 0.8 MV E/E' LAT 4.56 (<14) MV E' Average 0.127 m/s MV E/E'(average) 5.45 Aortic Valve AoV Vmax 1.41 m/s LVOT Vmax 1.47 m/s AoV Peak Grad 7.9 mmHg LVOT Peak Grad 8.7 mmHg AoV Area (Vmax) 3.34 cm2 LVOT VTI 0.314 m AoV VTI 0.319 m LVOT Mean Grad 4.2 mmHg AoV Mean Rashaad. 0.90 m/s LVOT SV 99.79 mL AoV Mean Grad 3.8 mmHg LVOT Diam s 2.00 cm AoV Area (VTI) 3.13 cm2 AV Regurg Peak Gr. 7.91 mmHg Velocity Ratio 1.04 Mitral Valve MV DT 190 (160-240 msec) MV Vmax TIPS 0.69 m/s MV Mean Grad 0.8 (<2mmHg) MV VTI 0.319 m Pulmonary Valve PV Vmax 1.22 (0.5-1.5 m/s) RVOT Vmax 0.73 m/s PV Peak Grad 5.9 mmHg RVOT Peak Gr. 2.1 mmHg PV Mean Rashaad 0.79 m/s RVOT VTI 0.146 m PV Mean Grad 2.9 mmHg RVOT Mean Gr. 1.2 mmHg Tricuspid Valve RA Pressure 3.00 mmHg TR Vmax 2.28 m/s TV S' 0.19 m/s TR Peak Grad 20.8 mmHg RVSP (TR) 23.8 mmHg
== END 2024-05-08 01:30 ==
LOC: DI 01:10
PROVIDERS: PCP Family Medicine; Visit Provider Family Medicine
DX: Z79.899 Other long term (current) drug therapy (principal)
CPT/HCPCS: 93306

== ENCOUNTER 2024-10-16 01:53 | Outpatient (CLI) | payer MEDICARE, MEDICAID, SELFPAY ==
--- NOTE | 2024-10-16 | DI.CTLCSR_ITS ---
Exam(s) CT CHEST LUNG CANCER SCREEN EXAM: CT CHEST LUNG CANCER SCREEN CLINICAL HISTORY: PERS HX NICOTINE DEPENDENCE Z87.891 TECHNIQUE: Imaging Protocol: Axial computed tomography images with coronal and sagittal reformatted images were created and reviewed. Low dose screening protocol. COMPARISON: CT CT CHEST LUNG CANCER SCREEN from 09/26/2023 FINDINGS: Tracheobronchial tree: No bronchiectasis or mucus plugging. Mediastinum and Margaret: No dominant adenopathy or fluid collection. Pulmonary parenchyma: No consolidation or dominant measurable mass. No visible emphysematous changes. No significant interstitial changes. Lung Nodules: Stable other scattered micro nodules. 5 millimeter nodule left lateral lower lobe. Pleura: No effusion. No pneumothorax. Heart: The heart is not dilated. No coronary artery calcifications are seen. No pericardial effusion. Aorta: Thoracic aorta non-dilated. Upper abdomen: Unremarkable. Bones: Unremarkable for age. Soft Tissues: Mild bilateral gynecomastia. IMPRESSION: No suspicious pulmonary nodules. Lung RADS Cat 2 - Benign Appearance / Behavior: Nodules with a very low likelihood of becoming a clin ically active cancer due to size or lack of growth Lung-RADS 1.0 CATEGORIES: Category 0 - Prior chest CT exam(s) being located for comparison. Category 1 - Annual screening in 12 months. No nodules or definitely benign nodules. Category 2 - Annual screening in 12 months. Benign appearance. Nodules with low likelihood of becomin g active cancer. Category 3 - 6-month follow-up. Probably benign. Short-term follow-up suggested. Nodules with low lik elihood of becoming active cancer. Category 4A - 3-month follow-up and CT/PET if >8 mm in size. Suspicious finding. Findings which requi re additional testing. Category 4B - Findings which require additional testing and tissue sampling. Category 4X - Category 3 or 4 nodules with additional features or imaging findings that increases the suspicion of malignancy. Modifier S- Potentially clinically significant findings (non lung cancer) RADIATION DOSE DELIVERED: !Error Total DLP DATA REPOSITORY: All CT scans at this facility are submitted to the National Radiology Data Registry (NRDR) Dose Index Registry (DIR) with the [employer] (ACR). RADIATION OPTIMIZATION: All CT scans at this facility use at least one of these dose optimization te chniques: automated exposure control; mA and/or kV adjustment per patient size (includes targeted exa ms where dose is matched to clinical indication); or iterative reconstruction.
== END 2024-10-16 02:13 ==
LOC: DI 01:54
PROVIDERS: PCP Family Medicine; Visit Provider Family Medicine
DX: Z87.891 Personal history of nicotine dependence (principal); Z12.2 Encounter for screening for malignant neoplasm of respiratory organs
CPT/HCPCS: 71271

== ENCOUNTER 2025-01-28 01:52 | Outpatient (CLI) | payer OTHER, SELFPAY ==
--- NOTE | 2025-01-28 | DI.RAD_ITS ---
Exam(s) XR HIP LT AP LAT ONLY EXAM: XR HIP LT AP LAT ONLY CLINICAL HISTORY: Encounter for disability determination, Z02.71; back and hip pain. TECHNIQUE: 2D digital imaging was performed. COMPARISON: CR XR HIP RT COMPLETE AP PELVIS from 11/28/2020 CR XR HIP RT COMPLETE AP PELVIS from 01/28/2025 FINDINGS: Single frogleg lateral view of the left hip: No evidence of fracture or dislocation or abnormal soft tissue calcifications. There is no joint spa ce narrowing. No osteophytes. IMPRESSION: No significant radiograph findings in the left hip. DATA REPOSITORY: RADIATION DOSE DELIVERED:
--- NOTE | 2025-01-28 | DI.RAD_ITS ---
Exam(s) XR HIP RT COMPLETE AP PELVIS EXAM: XR HIP RT COMPLETE AP PELVIS CLINICAL HISTORY: Encounter for disability determination, Z02.71; back and hip pain. TECHNIQUE: 2D digital imaging was performed. COMPARISON: CR XR HIP RT COMPLETE AP PELVIS from 11/28/2020 FINDINGS: Two views. No evidence of pelvic nor hip fractures. No degenerative narrowing in the hip joints. Sacroiliac lynne ints appear unremarkable Bone density normal. No osseous lesions. IMPRESSION: No significant radiograph findings in the pelvis and hips and no significant change compared to image s of 2020. DATA REPOSITORY: RADIATION DOSE DELIVERED:
--- NOTE | 2025-01-28 | DI.RAD_ITS ---
Exam(s) XR LUMBAR SPINE AP, LAT EXAM: XR LUMBAR SPINE AP, LAT CLINICAL HISTORY: Encounter for disability determination, Z02.71; back and hip pain. TECHNIQUE: 2D digital imaging was performed. COMPARISON: No exams were available for comparison FINDINGS: 3 views No evidence acute fracture. There is mild anterior wedging of T12 which does not appear acute. Only 10 percent height loss. There is degenerative anterolisthesis of L4 upon L5 with approximately 1 cm anterior slippage. There are no pars defects. This related to advanced degenerative facet arthropathy at this level. There is relatively preserved disc height at this level. At the L5-S1 level there is advanced disc space n arrowing but no listhesis. L5-S1 facet arthropathy noted. Mild disc space narrowing posteriorly at L3-4 level. Some facet arthropathy also noted at this level. There is some disc space narrowing at L at T12-L1 and L1-2 levels. There is relatively preserved disc height at L2-3. Bone density is normal. No osseous lesions. Sacroiliac joints appear unremarkable. IMPRESSION: There is degenerative anterolisthesis of L4 upon L5 related to advanced facet arthropathy. Multilevel disc space narrowing as described above. Also multilevel facet arthropathy. DATA REPOSITORY: RADIATION DOSE DELIVERED:
== END 2025-01-28 02:12 ==
PROVIDERS: PCP Family Medicine; Visit Provider Pediatrics Pediatric Rheumatology
DX: Z02.71 Encounter for disability determination (principal); M51.362 Other intervertebral disc degeneration, lumbar region with discogenic back pain and lower extremity pain
CPT/HCPCS: 72100; 73502

== ENCOUNTER → 2025-07-17 01:46 | Outpatient (CLI) | payer MEDICARE, MEDICAID, SELFPAY ==
--- NOTE | 2025-07-17 | DI.US_ITS ---
Exam(s) US SCROTUM EXAM: US SCROTUM CLINICAL HISTORY: TESTICULAR ABNORMALITY, N50.9, DISORDER MALE GENITAL ORGANS. TECHNIQUE: Scrotal ultrasound performed using grayscale, color-flow and spectral Doppler analysis. COMPARISON: No exams were available for comparison FINDINGS: Right testicle: 2.6 x 1.3 x 1.8 cm Echogenicity: Normal. Contour: Smooth. Mass: None seen. Microlithiasis: None. Hydrocele: There is a small hydrocele measuring 2.2 x 0.5 x 1.0 cm. Variocele: The veins measure up to 5 mm. Hernia: No peristalsing bowel loop identified. Epididymis: Spermatoceles are present. The largest measures 5 x 6 x 6 mm. Left testicle: 4.0 x 2.2 x 3.1 cm Echogenicity: Normal. Contour: Smooth. Mass: None seen. Microlithiasis: None. Hydrocele: There is a small hydrocele measuring 1.5 x 0.5 x 1.1 cm. Variocele: The veins measure up to 5 mm. Hernia: No peristalsing bowel loop identified. Epididymis: Normal. DOPPLER: Color: Symmetric and uniform, no hyperemia. IMPRESSION: 1. The right testicle is smaller than the left testicle. There is no evidence of a testicular mass or abnormal blood flow. 2. No findings to suggest epididymal orchitis. 3. Small bilateral varicoceles and small hydroceles. DATA REPOSITORY:
== END ==
PROVIDERS: PCP Family Medicine; Visit Provider Family Medicine
DX: N50.89 Other specified disorders of the male genital organs (principal); N43.3 Hydrocele, unspecified
CPT/HCPCS: 76870